=== PATIENT | male | born 1965 | race Caucasian/White ===

== ENCOUNTER → 2016-12-20 16:16 | Outpatient (CLI) | payer MEDICAID ==
[2016-12-20 17:07] LABS: BASOPHILS 0.8 % (0-2); EOSINOPHILS 2.3 % (0-7); HEMATOCRIT 45.8 % (42.0-54.0); HEMOGLOBIN 15.8 g/dL (13.5-17.5); IMMATURE GRANULOCYTES 0.2 % (0-5); MCH 31.7 pg (26.0-34.0); MCHC 34.5 g/dL (31.0-37.0); NEUTROPHILS 60.7 % (40-80); PLATELET COUNT 217 10x3/uL (130-400); RBC 4.98 10x6/uL (4.20-6.10); RDW 13.6 % (11.5-14.5)
== END | disposition home or self-care (01) ==
LOC: D.RAD 11:00 → D.CN 11:30 → D.RAD 16:16
PROVIDERS: Orthopaedic Surgery
DX: I10 Essential (primary) hypertension (principal); F17.200 Nicotine dependence, unspecified, uncomplicated